=== PATIENT | male | born 1995 | race Caucasian/White ===

== ENCOUNTER 2021-04-12 10:53 | Emergency (ER) | payer OTHER ==
[~2021-04-12] VITALS: Ht 172.7 cm; Wt 77.3 kg
[2021-04-12 11:23] VITALS: BP 120/68
--- NOTE | 2021-04-12 12:10 | NUR ---
FIRST CONTACT WITH PT, PRESENTS WITH RECTAL PAIN FROM HEMORROID. STATES PAIN WITH MOVEMENT AND STRAINING. DENIES PAIN AT THIS TIME, DENIES BLEEDING. NAD.
--- NOTE | 2021-04-12 12:15 | NUR ---
DR. CHANG AT BEDSIDE
[2021-04-12] MEDS ORDERED: LIDO30CR TOP (12:22)
[2021-04-12] MEDS ORDERED: HYDR30CR79 TOP (12:22)
== END 2021-04-12 12:47 | disposition home or self-care (01) ==
LOC: ER 10:54
DX: K64.9 Unspecified hemorrhoids (principal); K62.89 Other specified diseases of anus and rectum
CPT/HCPCS: 99283